=== PATIENT | male | born 1970 | race Caucasian/White ===

== ENCOUNTER → 2024-03-06 12:32 | Outpatient (REF) | payer OTHER, SELFPAY | LOC: HWRAD 12:32 | PROVIDERS: ATTENDING PHYSICIAN Physician Assistant Medical | DX: M54.6 Pain in thoracic spine (principal); R20.0 Anesthesia of skin; M89.8X1 Other specified disorders of bone, shoulder | CPT/HCPCS: 72072 ==

== ENCOUNTER → 2024-08-28 12:53 | Outpatient (REF) | payer OTHER, SELFPAY | LOC: HWRCS 12:53 | PROVIDERS: ATTENDING PHYSICIAN Internal Medicine Interventional Cardiology; FAMILY PHYSICIAN Family Medicine | DX: I10 Essential (primary) hypertension (principal); E78.5 Hyperlipidemia, unspecified; I25.10 Atherosclerotic heart disease of native coronary artery without angina pectoris; M79.89 Other specified soft tissue disorders | CPT/HCPCS: 93306 ==